=== PATIENT | female | born 1945 | race Caucasian/White ===

== ENCOUNTER 2017-08-06 06:35 | Day surgery (SDC) | payer BC ==
[2017-08-06] VITALS (10 sets, daily range): BP systolic 109–133; BP diastolic 50–587; PULSE 62–81; TEMP 97.4–97.6
[~2017-08-06] VITALS: Ht 167.6 cm; Wt 59.6 kg
[~2017-08-06 06:35] MED LIST: CO Q-1010 M1 PO; FISH OIL 1000MG1 CAP PO; LOPRESSOR 225 MG/TAB PO; MASON NATURAL1000 IU PO; NATURAL E400 IU; NATURE'S BLEND1 TA6 PO; OS-CAL 500 + D1 TAB PO; ZOCOR 10MG10 MG PO
[2017-08-06] MEDS ORDERED: HCTZ 25MG TAB25 MG PO (07:37)
[2017-08-06] MEDS ORDERED: ZOCOR 20MG20 MG PO ×2 (07:37→08:01)
[2017-08-06] MEDS ORDERED: KLOR-CON SPRIN10 MEQ PO (07:38)
[2017-08-06] MEDS ORDERED: DESYREL 50MG50 MG PO (07:39)
[2017-08-06] MEDS ORDERED: LOPRESSOR 550 MG/TAB PO (07:40)
[2017-08-06] MEDS ORDERED: RECLAST5 MG/100 M IV (07:40)
[2017-08-06] MEDS ORDERED: VITAMIN D31000 I1 PO (07:41)
[2017-08-06] MEDS ORDERED: CITRACAL + D CA1 TAB PO (07:41)
[2017-08-06] MEDS ORDERED: MULTIPLE VITAMI1 CAP PO (07:42)
[2017-08-06] MEDS ORDERED: THE MEDICINE S200 M2 PO (07:42)
[2017-08-06] MEDS ORDERED: VITAMIN E1000 U/CAP PO (07:42)
[2017-08-06] MEDS ORDERED: MASON NATURAL1200 MG PO (07:49)
[2017-08-06] MEDS ORDERED: VITAMINC1000TA PO (07:58)
[2017-08-07 00:01] VITALS: BP 97/47; PULSE 66; TEMP 97.8
[2017-08-07 04:30] VITALS: BP 102/55; PULSE 71; TEMP 97.6
[2017-08-07] MEDS ORDERED: NORCO 325 MG-51 TAB PO (07:14)
[2017-08-07 08:24] VITALS: BP 115/50; PULSE 66; TEMP 98.1
== END 2017-08-07 11:00 | disposition home or self-care (01) ==
LOC: SDCO 06:35 → COL.RAD 07:59 → SDCO 12:30 → JCC 14:20 → EDSTATUS 14:47 → SDCO 08-07 11:00
DX: C50.812 Malignant neoplasm of overlapping sites of left female breast (principal); M81.0 Age-related osteoporosis without current pathological fracture; Z79.899 Other long term (current) drug therapy; Z17.1 Estrogen receptor negative status [ER-]; Z80.52 Family history of malignant neoplasm of bladder; Z80.0 Family history of malignant neoplasm of digestive organs; I10 Essential (primary) hypertension; I34.1 Nonrheumatic mitral (valve) prolapse
CPT/HCPCS: OP; A9541; J0690; J1100; J1170; J1885; J2405; J2704; J3010; J7120

== ENCOUNTER → 2018-08-06 | Outpatient (CLI) | payer BC, MEDICARE ==
[~2018-08-06] MED LIST changes: +CITRACAL + D CA1 TAB PO; +DESYREL 50MG50 MG PO; +HCTZ 25MG TAB25 MG PO; +KLOR-CON SPRIN10 MEQ PO; +LOPRESSOR 550 MG/TAB PO; +MASON NATURAL1200 MG PO; +MULTIPLE VITAMI1 CAP PO; +NORCO 325 MG-51 TAB PO; +RECLAST5 MG/100 M IV; +THE MEDICINE S200 M2 PO; +VITAMIN D31000 I1 PO; +VITAMIN E1000 U/CAP PO; +VITAMINC1000TA PO; +ZOCOR 20MG20 MG PO
== END ==
LOC: MC.RAD 07-09 14:15
DX: Z12.31 Encounter for screening mammogram for malignant neoplasm of breast (principal)

== ENCOUNTER → 2019-08-19 | Outpatient (CLI) | payer BC | LOC: MC.RAD 15:10 | DX: Z12.31 Encounter for screening mammogram for malignant neoplasm of breast (principal); C50.912 Malignant neoplasm of unspecified site of left female breast; Z90.12 Acquired absence of left breast and nipple ==

== ENCOUNTER → 2020-10-19 | Outpatient (CLI) | payer BC | LOC: MC.RAD 11:24 | DX: Z12.31 Encounter for screening mammogram for malignant neoplasm of breast (principal) ==

== ENCOUNTER → 2021-10-25 | Outpatient (CLI) | payer BC | LOC: MC.RAD 13:33 | DX: Z12.31 Encounter for screening mammogram for malignant neoplasm of breast (principal) ==